=== PATIENT | male | born 1980 | race Caucasian/White ===

== ENCOUNTER 2017-08-12 00:21 | Emergency (ER) | payer OTHER ==
[2017-08-12 01:15] LABS: ABS Basophils 0.1 10^3/ul (0-0.2); ABS Eosinophils 0.2 10^3/ul (0-0.6); ABS Monocytes 0.6 10^3/ul (0-0.8); ABS Neutrophils 3.7 10^3/ul (1.5-7.7); ABS Nucleated RBC 0 10^3/ul; Eosinophil % 3.1 % (0-6); Hematocrit 43 % (42-52); Hemoglobin 14.6 g/dl (14.0-18.0); Lymphocyte % 38.9 % (25-47); Mean Corpuscular HGB Conc 34 g/dl (31-36); Mean Corpuscular Hemoglobin 30 pg (27-31); Mean Corpuscular Volume 88 fL (80-94); Mean Platelet Volume 8 um3 (7.4-10.4); Nucleated Red Blood Cells % 0.2; Platelet Count 251 10^3/ul (150-450); Red Blood Count 4.82 10^6/ul (4.0-5.4); Red Cell Distribution Width 13 % (10.5-15); White Blood Count 7.6 10^3/ul (3.5-10.8)
[2017-08-12 01:29] LABS: EGFR Non-African American 106.9 (>60)
[2017-08-12] MEDS ORDERED: Potassium Chloride LIQUID* 20 MEQ PACKET PO ONE (01:32)
[2017-08-12 02:35] VITALS: BP 118/67
--- NOTE | 2017-08-29 01:23 | ED ---
Maddy Askew Emily, scribed for Nba Voss MD on 08/12/17 at 0050 . Palpitations / Dysrhythmia - HPI Summary HPI Summary: This patient is a 36 year old M BIBA to [facility] with a chief complaint of palpitations that began at 1999 yesterday. Pt reports the episodes lasting 10 minutes at most. The patient rates the pain 0/10 in severity. Symptoms aggravated by nothing. Symptoms alleviated by nothing. Patient reports SOB, neck tightness, and snoring at night. Patient denies dizziness. - History of Current Complaint Chief Complaint: EDDysrhythmPalp Hx Obtained From: Patient Onset/Duration: Sudden Onset, Lasting Hours, Still Present Timing: Intermittent Episodes Lasting: - Minutes Severity Initially: Mild Severity Currently: Mild Character: Irregular Aggravating: Nothing Alleviating: Nothing - Allergy/Home Medications Allergies/Adverse Reactions: Allergies Allergy/AdvReac Type Severity Reaction Status Date / Time No Known Allergies Allergy Verified 11/08/15 04:44 PMH/Surg Hx/FS Hx/Imm Hx Previously Healthy: Yes Endocrine/Hematology History: Denies: Hx Diabetes Cardiovascular History: Denies: Hx Hypertension Infectious Disease History: No Infectious Disease History: Denies: Traveled Outside the [place] in Last 30 Days - Family History Known Family History: Positive: Other - Noncontribuity - Social History Occupation: Employed Full-time Lives: With Family Alcohol Use: Weekly Substance Use Type: Reports: None Smoking Status (MU): Heavy Every Day Tobacco Smoker Review of Systems Positive: Other - Positive snoring at night Positive: Palpitations Positive: Shortness Of Breath Positive: Other - Positive neck tightness All Other Systems Reviewed And Are Negative: Yes Physical Exam - Summary Physical Exam Summary: Appearance: Well-appearing, Well-nourished Skin: Warm, Dry, No rash Eyes: Normal, PERRL, EOMI, sclera anicteric ENT: Pharynx is Mallampatic class 3 Neck: Supple, nontender Respiratory: Clear to auscultation Cardiovascular: S1, S2, no murmur, no rub, no gallop Abdomen: Soft, nontender, no organomegaly Bowel sounds: Present Musculoskeletal: Normal, Strength/ROM Intact, no edema, pulses symmetrical Neurological: Normal, A&Ox3, cranial nerves II-XII WNL, follows commands, gait not tested, sensation intact to pin and light touch Psychiatric: affect normal, behavior appropriate, dressed appropriately, judgment intact Triage Information Reviewed: Yes Vital Signs On Initial Exam: Initial Vitals BP 128/75 08/12/17 00:25 Vital Signs Reviewed: Yes - [place] Coma Scale Coma Scale Total: 15 Diagnostics - Vital Signs Vital Signs Temp Pulse Resp BP Pulse Ox 08/12/17 00:30 85 15 131/84 96 08/12/17 00:28 86 17 96 08/12/17 00:27 97.4 F 83 20 128/75 96 08/12/17 00:25 128/75 - Laboratory Result Diagrams: 08/12/17 01:02 08/12/17 01:02 Lab Statement: Any lab studies that have been ordered have been reviewed, and results considered in the medical decision making process. - EKG 0048 Cardiac Rate: NL EKG Rhythm: Sinus Rhythm - [address] Segment: Normal Course/Dx - Course Assessment/Plan: This patient is a 36 year old M BIBA to [facility] with a chief complaint of palpitations that began at 1999 yesterday. Pt reports the episodes lasting 10 minutes at most. The patient rates the pain 0/10 in severity. Physical Exam Findings. Phaynx is mallampati class 3. An EKG taken at 0048 reveals normal sinus rhythm at [address] segment. Bloodwork obtained. In the ED course the patient was given fluids. Patient will be discharged with follow up from PCP. The patient is agreeable with this plan. - Diagnoses Provider Diagnoses: Hypokalemia, Palpitations, probable sleep apnea Discharge - Discharge Plan Condition: Good Disposition: HOME Patient Education Materials: Palpitations (ED), Snoring (ED) Referrals: [facility]ERR[facility] [Outside] Non Staff,Doctor [Primary Care Provider] - The documentation as recorded by the Maddy holguin Emily accurately reflects the service I personally performed and the decisions made by me, Nba Voss MD.
== END 2017-08-12 02:35 | disposition home or self-care (01) ==
LOC: ED 00:21
DX: R00.2 Palpitations (principal); E87.6 Hypokalemia; F17.200 Nicotine dependence, unspecified, uncomplicated
CPT/HCPCS: 36415; 80053; 83735; 84484; 85025; 93005; 99283; A9270-GY

== ENCOUNTER 2018-10-01 11:42 | Emergency (ER) | payer OTHER ==
[2018-10-01 11:56] VITALS: BP 141/81
--- NOTE | 2018-10-01 12:03 | UC ---
Ear Complaint HPI - HPI Summary HPI Summary: 38 yo male presents with b/l ear pain. He tells me that around this time every year he will get an ear infection. He used to have ear drops that he would use to resolve this, but has run out. About a week ago his left ear started to hurt and he noticed some drainage, but that has resolved in the last 2-3 days. His right ear, however, has begun to hurt over the last few days. He admits that he has been using q tips many times a day trying to itch and clean his ears. Denies fever, chills, sinus symptoms, sore throat, or trauma. - History of Current Complaint Chief Complaint: UCEar Stated Complaint: EAR PAIN Time Seen by Provider: 10/01/18 12:02 Hx Obtained From: Patient Onset/Duration: Gradual Onset Severity Initially: Mild Severity Currently: Mild Pain Intensity: 1 Pain Scale Used: 0-10 Numeric - Allergies/Home Medications Allergies/Adverse Reactions: Allergies Allergy/AdvReac Type Severity Reaction Status Date / Time No Known Allergies Allergy Verified 10/01/18 11:56 Home Medications: Home Medications Ibuprofen 600 mg PO 10/01/18 [History] PMH/Surg Hx/FS Hx/Imm Hx - Additional Past Medical History Additional PMH: None - Surgical History Surgical History: None - Family History Known Family History: Positive: Other - Noncontribuity - Social History Occupation: Employed Full-time Lives: With Family Alcohol Use: Weekly Substance Use Type: None Smoking Status (MU): Heavy Every Day Tobacco Smoker Review of Systems All Other Systems Reviewed And Are Negative: Yes Constitutional: Positive: Negative Skin: Positive: Negative Eyes: Positive: Negative ENT: Positive: Ear Ache Respiratory: Positive: Negative Cardiovascular: Positive: Negative Gastrointestinal: Positive: Negative Neurovascular: Positive: Negative Neurological: Positive: Negative Psychological: Positive: Negative Physical Exam - Summary Physical Exam Summary: GENERAL: NAD. WDWN. No pain distress. SKIN: No rashes, sores, lesions, or open wounds. HEENT: Head: AT/NC Eyes: EOM intact. Conjunctiva clear without inflammation or discharge. Ears: Hearing grossly normal. RIGHT TM with mild erythema and bulging. Anterior aspect of TM approx 5 o'clock with black ?hole in membrane. No canal edema or drainage. No tragus or mastoid tenderness. NTTP with auricular manipulation. LEFT TM WNL and intact. Nose: Nasal mucosa pink and moist. NTTP maxillary and frontal sinus. Throat: Posterior oropharynx without exudates, erythema, or tonsillar enlargement. Uvula midline. NECK: Supple. Nontender. No lymphadenopathy. CHEST: CTAB. No r/r/w. No accessory muscle use. Breathing comfortably and in no distress. CV: RRR. Without m/r/g. Pulses intact. NEURO: Alert. PSYCH: Age appropriate behavior. Triage Information Reviewed: Yes Vital Signs: Initial Vital Signs Temp 98.6 F 10/01/18 11:53 Pulse 78 10/01/18 11:53 Resp 18 10/01/18 11:53 BP 141/81 10/01/18 11:53 Pulse Ox 99 10/01/18 11:53 Vital Signs Reviewed: Yes Ear Complaint Course/Dx - Course Course Of Treatment: Right otitis media with ?TM rupture. Will start him with po and topical anbx. Strongly encouraged to f/u with ENT. - Differential Dx/Diagnosis Provider Diagnosis: Right otitis media Discharge - Sign-Out/Discharge Documenting (check all that apply): Patient Departure All imaging exams completed and their final reports reviewed: No Studies - Discharge Plan Condition: Stable Disposition: HOME Prescriptions: Amoxicillin/Clavulanate TAB* [Augmentin TAB 875*] 875 mg PO BID #20 tab Ofloxacin 0.3% (Ear Drop)* [Floxin 0.3% OTIC.ETIENNE (Ear Drop)] 5 drop RIGHT EAR BID #1 btl Patient Education Materials: Ear Infection (ED) Referrals: No Primary Care Phys,NOPCP [Primary Care Provider] - Bhavin Weaver MD [Medical Doctor] - As Soon As Possible Additional Instructions: If you develop a fever, shortness of breath, chest pain, new or worsening symptoms - please call your PCP or go to the ED. Your blood pressure was high at todays visit. Please see your primary provider within 4 weeks for recheck and re-evaluation. Please call ENT to schedule a follow up appointment regarding your chronic ear infection - Billing Disposition and Condition Condition: STABLE Disposition: Home
== END 2018-10-01 12:20 | disposition home or self-care (01) ==
LOC: UCEAST 11:42
DX: H66.91 Otitis media, unspecified, right ear (principal); F17.200 Nicotine dependence, unspecified, uncomplicated
CPT/HCPCS: 99212; G0463